=== PATIENT | female | born 1960 | race Caucasian/White ===

== ENCOUNTER 2020-02-22 00:14 | Emergency (ER) | payer MEDICAID ==
[~2020-02-22] VITALS: Ht 162.6 cm; Wt 78.0 kg
[2020-02-22 00:19] VITALS: Ht 162.6 cm; Wt 78.0 kg
[2020-02-22 03:40] VITALS: BP 110/75
== END 2020-02-22 03:49 | disposition home or self-care (01) ==
LOC: ED 00:14
DX: S52.592A Other fractures of lower end of left radius, initial encounter for closed fracture (principal); S52.612A Displaced fracture of left ulna styloid process, initial encounter for closed fracture; W18.30XA Fall on same level, unspecified, initial encounter; Y93.89 Activity, other specified; Y92.89 Other specified places as the place of occurrence of the external cause; Y99.8 Other external cause status
CPT/HCPCS: Q0092

== ENCOUNTER 2020-02-22 18:43 | Emergency (ER) | payer MEDICAID ==
[~2020-02-22] VITALS: Ht 162.6 cm; Wt 78.0 kg
[2020-02-22 18:50] VITALS: Ht 162.6 cm; Wt 78.0 kg
[2020-02-22 19:08] LABS: BASOPHIL % 0.3 % (0-2); PLATELET COUNT 178 x10^3mcL (130-400)
[2020-02-22 19:09] LABS: RED CELL DISTRIBUTION WIDTH 15.6 % (11.5-14.5)
[2020-02-22 19:13] LABS: CALCIUM 8.5 mg/dL (8.5-10.1); CARBON DIOXIDE 28.4 mmol/L (21-32); CHLORIDE SERUM 104 mmol/L (98-107); CREATININE SERUM 0.6 mg/dL (0.6-1.0); GFR1 > 60 mL/min; GLUCOSE SERUM 97 mg/dL (74-106); POTASSIUM SERUM 3.6 mmol/L (3.5-5.1); SODIUM SERUM 143 mmol/L (136-145)
[2020-02-22 19:30] LABS: ALBUMIN 3.8 g/dL (3.4-5.0); ALKALINE PHOSPHATASE 89 U/L (46-116); ALT/SGPT 87 U/L (14-59); AST/SGOT 71 U/L (15-37); BILIRUBIN TOTAL 1.1 mg/dL (0.20-1.00); TOTAL PROTEIN, SERUM 7.1 g/dL (6.4-8.2)
[2020-02-22 20:23] VITALS: BP 130/80
== END 2020-02-22 20:23 | disposition home or self-care (01) ==
LOC: ED 18:43
PROVIDERS: Emergency Medicine
DX: S09.8XXA Other specified injuries of head, initial encounter (principal); R55 Syncope and collapse; W17.89XA Other fall from one level to another, initial encounter; Y93.89 Activity, other specified; Y92.89 Other specified places as the place of occurrence of the external cause; Y99.8 Other external cause status
CPT/HCPCS: 83880; J1885; Q0092

== ENCOUNTER 2020-02-26 17:14 | Emergency (ER) | payer MEDICAID ==
[~2020-02-26] VITALS: Ht 162.6 cm; Wt 81.6 kg
[2020-02-26 17:31] VITALS: Ht 162.6 cm; Wt 81.6 kg
[2020-02-26 18:35] LABS: BASOPHIL % 0.3 % (0-2); PLATELET COUNT 194 x10^3mcL (130-400)
[2020-02-26 18:39] LABS: RED CELL DISTRIBUTION WIDTH 15.5 % (11.5-14.5)
[2020-02-26 18:52] LABS: CALCIUM 8.4 mg/dL (8.5-10.1); CARBON DIOXIDE 30.1 mmol/L (21-32); CHLORIDE SERUM 110 mmol/L (98-107); CREATININE SERUM 0.6 mg/dL (0.6-1.0); GFR1 > 60 mL/min; GLUCOSE SERUM 101 mg/dL (74-106); POTASSIUM SERUM 3.7 mmol/L (3.5-5.1); SODIUM SERUM 146 mmol/L (136-145)
[2020-02-26 18:56] LABS: ALKALINE PHOSPHATASE 93 U/L (46-116); ALT/SGPT 69 U/L (14-59); AST/SGOT 42 U/L (15-37); BILIRUBIN TOTAL 0.7 mg/dL (0.20-1.00); TOTAL PROTEIN, SERUM 6.6 g/dL (6.4-8.2)
[2020-02-26 18:58] LABS: ALBUMIN 3.3 g/dL (3.4-5.0)
[2020-02-26 19:52] LABS: AMPHETAMINE QUAL UR NONE DETECTED (See below)
[2020-02-27 14:55] LABS: MAGNESIUM 2.1 mg/dL (1.8-2.4); PHOSPHOROUS 4.6 mg/dL (2.5-4.9)
[2020-02-27 14:56] LABS: CHOLESTEROL/HDL RATIO 2.7
[2020-02-27 15:49] LABS: microscopic required? NO
[2020-02-27 16:06] LABS: UA SPECIFIC GRAVITY 1.015 (1.005-1.035); urine erythrocyte NEGATIVE (NEGATIVE)
[2020-02-27 16:16] VITALS: BP 132/76
== END 2020-02-27 16:16 ==
LOC: ED 17:14 → MU 02-27 14:03
PROVIDERS: Emergency Medicine; Family Medicine
DX: S52.572A Other intraarticular fracture of lower end of left radius, initial encounter for closed fracture (principal); F19.10 Other psychoactive substance abuse, uncomplicated; F31.9 Bipolar disorder, unspecified; F41.9 Anxiety disorder, unspecified; X58.XXXA Exposure to other specified factors, initial encounter; Y93.89 Activity, other specified; Y92.89 Other specified places as the place of occurrence of the external cause; Y99.8 Other external cause status
CPT/HCPCS: 36415; 83880; G0480; J2270

== ENCOUNTER 2020-04-04 17:38 | Emergency (ER) | payer MEDICAID ==
[~2020-04-04] VITALS: Ht 165.1 cm; Wt 77.1 kg
[2020-04-04 17:46] VITALS: Ht 165.1 cm; Wt 77.1 kg
[2020-04-04 19:23] VITALS: BP 129/81
== END 2020-04-04 19:23 | disposition home or self-care (01) ==
LOC: ED 17:38
DX: S52.502A Unspecified fracture of the lower end of left radius, initial encounter for closed fracture (principal); J45.909 Unspecified asthma, uncomplicated; X58.XXXA Exposure to other specified factors, initial encounter; Y93.89 Activity, other specified; Y92.89 Other specified places as the place of occurrence of the external cause; Y99.8 Other external cause status
CPT/HCPCS: A4570

== ENCOUNTER 2020-12-24 17:15 | Emergency (ER) | payer MEDICAID ==
[~2020-12-24] VITALS: Ht 165.1 cm; Wt 68.0 kg
[~2020-12-24 17:15] MED LIST: IBU600 M2 PO; REMERON SOLTAB45 MG PO; SEROQUEL50 M1 PO
[2020-12-24 17:22] VITALS: Ht 165.1 cm; Wt 68.0 kg
[2020-12-24 18:53] LABS: CALCIUM 8.7 mg/dL (8.5-10.1); CARBON DIOXIDE 27.5 mmol/L (21-32); CHLORIDE SERUM 107 mmol/L (98-107); CREATININE SERUM 0.6 mg/dL (0.6-1.0); GFR1 > 60 mL/min; GLUCOSE SERUM 136 mg/dL (74-106); POTASSIUM SERUM 3.8 mmol/L (3.5-5.1); SODIUM SERUM 144 mmol/L (136-145)
[2020-12-24 18:56] LABS: BASOPHIL % 0.7 % (0.2-1.3); PLATELET COUNT 189 x10^3mcL (179-408); RED CELL DISTRIBUTION WIDTH 14.3 % (12.3-17.7)
[2020-12-24 18:57] LABS: ALBUMIN 3.9 g/dL (3.4-5.0); ALKALINE PHOSPHATASE 118 U/L (46-116); ALT/SGPT 114 U/L (14-59); AST/SGOT 87 U/L (15-37); BILIRUBIN TOTAL 1.2 mg/dL (0.20-1.00); TOTAL PROTEIN, SERUM 7.2 g/dL (6.4-8.2)
[2020-12-24 19:32] LABS: rbc morphology (normal/abnorm) NORMAL (NORMAL)
[2020-12-24] MEDS ORDERED: VOLTAREN100 GM TOP (20:05)
[2020-12-24 20:33] VITALS: BP 90/59
[2020-12-25] MEDS ORDERED: HYDROCODONE BIT1 T51 PO ×2 (13:17→13:20)
== END 2020-12-24 20:33 | disposition home or self-care (01) ==
LOC: ED 17:15
DX: S80.02XA Contusion of left knee, initial encounter (principal); S80.01XA Contusion of right knee, initial encounter; F19.10 Other psychoactive substance abuse, uncomplicated; W17.89XA Other fall from one level to another, initial encounter; Y93.89 Activity, other specified; Y92.89 Other specified places as the place of occurrence of the external cause; Y99.8 Other external cause status
CPT/HCPCS: G0480; J1885

== ENCOUNTER 2020-12-25 10:11 | Emergency (ER) | payer MEDICAID ==
[~2020-12-25] VITALS: Ht 162.6 cm; Wt 74.8 kg
[~2020-12-25 10:11] MED LIST changes: +VOLTAREN100 GM TOP
[2020-12-25 10:19] VITALS: Ht 162.6 cm; Wt 74.8 kg
[2020-12-25] MEDS ORDERED: HYDROCODONE BIT1 T51 PO ×2 (13:17→13:20)
[2020-12-25 14:54] VITALS: BP 121/78
== END 2020-12-25 14:54 | disposition home or self-care (01) ==
LOC: ED 10:11
DX: S82.832A Other fracture of upper and lower end of left fibula, initial encounter for closed fracture (principal); W01.0XXA Fall on same level from slipping, tripping and stumbling without subsequent striking against object, initial encounter; Y93.89 Activity, other specified; Y92.89 Other specified places as the place of occurrence of the external cause; Y99.8 Other external cause status

== ENCOUNTER 2020-12-30 15:47 | Emergency (ER) | payer MEDICAID ==
[~2020-12-30] VITALS: Ht 162.6 cm; Wt 74.8 kg
[~2020-12-30 15:47] MED LIST changes: +HYDROCODONE BIT1 T51 PO
[2020-12-30 15:51] VITALS: Ht 162.6 cm; Wt 74.8 kg
[2020-12-30] MEDS ORDERED: MOT600 PO (17:12)
[2020-12-30] MEDS ORDERED: HYDROXYZINE HYD25 MG PO (17:24)
[2020-12-30 17:44] VITALS: BP 130/75
== END 2020-12-30 17:44 | disposition home or self-care (01) ==
LOC: ED 15:47
DX: S82.402A Unspecified fracture of shaft of left fibula, initial encounter for closed fracture (principal); M25.572 Pain in left ankle and joints of left foot; Z90.49 Acquired absence of other specified parts of digestive tract; X58.XXXA Exposure to other specified factors, initial encounter; Y93.89 Activity, other specified; Y92.89 Other specified places as the place of occurrence of the external cause; Y99.8 Other external cause status
CPT/HCPCS: J1885; J2270